=== PATIENT | male | born 1980 | race African-American/Black ===

== ENCOUNTER 2017-06-09 02:21 | Emergency (ER) | payer OTHER ==
[~2017-06-09] VITALS: Ht 182.9 cm; Wt 116.5 kg
[2017-06-09] MEDS ORDERED: NAPROSYN500 MG PO (03:30)
[2017-06-09 03:52] VITALS: BP 145/97
== END 2017-06-09 04:05 | disposition home or self-care (01) ==
LOC: EME 02:21
DX: S86.912A Strain of unspecified muscle(s) and tendon(s) at lower leg level, left leg, initial encounter (principal); S83.92XA Sprain of unspecified site of left knee, initial encounter; X50.1XXA Overexertion from prolonged static or awkward postures, initial encounter; W18.39XA Other fall on same level, initial encounter; Y92.149 Unspecified place in prison as the place of occurrence of the external cause; Y99.0 Civilian activity done for income or pay
CPT/HCPCS: 73564; 99281; 99283